=== PATIENT | male | born 1945 | race Caucasian/White ===

== ENCOUNTER → 2016-06-13 | Outpatient (CLI) | payer OTHER, MEDICARE ==
[~2016-06-13] MED LIST: LISI10TA PO; PRLSR20 PO; SIMV10TA2 PO
== END | disposition home or self-care (01) ==
LOC: C.LAB 06:50
PROVIDERS: ATTEND Urology
DX: C61 Malignant neoplasm of prostate (principal)

== ENCOUNTER → 2017-07-04 | Outpatient (CLI) | payer OTHER, MEDICARE ==
[2017-07-04 09:46] LABS: BLOOD UREA NITROGEN 22 mg/dl (7-18); CREATININE 1.15 mg/dl (0.60-1.40)
== END | disposition home or self-care (01) ==
LOC: C.LAB 07:20
PROVIDERS: ATTEND Urology
DX: R97.20 Elevated prostate specific antigen [PSA] (principal)